=== PATIENT | male | born 1965 | race Two or more races ===

== ENCOUNTER 2024-11-06 11:38 | Emergency (ER) | payer MEDICAID, SELFPAY ==
[2024-11-06 11:39] VITALS: BMI 40.2
[2024-11-06 11:48] VITALS: BP 163/81; PULSE 73; RESP 16; TEMP 37; O2SAT 97
--- NOTE | 2024-11-06 11:56 | XR_ITS ---
Examination: CT abdomen with intravenous contrast CT pelvis with intravenous contrast 2-D coronal reconstructions 2-D sagittal reconstructions Date and time of exam:November 06, 2024 1330 hours Comparison March 31, 2021 INDICATIONS: Onset right-sided abdominal pain beginning one week ago. CTDI: vol (mGy) 12.1 DLP: (mGycm) 793 Technique: Multiple axial sections of the abdomen and pelvis have been obtained. 64 slice high-resolution scanner used. 3 mm axial sections have been obtained, post intravenous injection 60 cc [id number] 2-D sagittal, coronal reconstructions obtained. Low dose protocols were performed. One or more of the following dose reduction techniques were used; automated exposure control, adjustment of the mA and/or KV according to patient size, use of iterative reconstruction technique. Findings: No focal liver or splenic lesions Absent gallbladder No pancreatic or adrenal mass Minimal right hydronephrosis secondary to 1 mm distal right ureterovesical junction calculus, image 204 3 cm fat-containing right lateral abdominal wall hernia defect Aorta normal size No bowel obstruction Normal appendix 12 mm fat-containing umbilical hernia, small bowel is present at the entrance of this hernia defect but no bowel obstruction or incarcerated bowel Colonic diverticulosis, no diverticulitis Transverse prostate dimension 5.7 cm Contracted urinary bladder Prominent osteopenia with 5 mm posterior bony spur inferior margin L4 Moderate bilateral hip osteoarthritis IMPRESSION: 3 cm fat-containing right lateral abdominal wall hernia defect 12 mm fat-containing umbilical hernia defect Minimal right hydronephrosis secondary to 1 mm distal right ureterovesical junction calculus
--- NOTE | 2024-11-06 11:57 | PD.EDRME ---
Rapid Medical Screening Exam RME Arrival date/time: 11/06/24 11:38 This is a 59-year-old male who presents to the emergency department with complaints of right mid abdominal pain near surgical site. History of cholecystectomy. + Mild nausea no fever. I have greeted and performed a focused initial assessment of this patient. Initial appropriate labs ordered at this time. A comprehensive ED assessment and evaluation of the patient and analysis of all test and completion of medical decision making process will be conducted by additional ED provider. Chief Complaint: Abdominal Pain Time Seen by Provider: 11/06/24 11:56 Vital signs: Vital Signs Temperature 98.6 F 11/06/24 11:48 Pulse Rate 73 11/06/24 11:48 Respiratory Rate 16 11/06/24 11:48 Blood Pressure 163/81 H 11/06/24 11:48 Pulse Oximetry (%) 97 11/06/24 11:48 Oxygen Delivery Method Room Air 11/06/24 11:48
[2024-11-06 12:38] LABS: Basophils % (Auto) 1 % (0-2.5); Eosinophils # (Auto) 0.2 Thou/mm3 (0.0-0.5); Eosinophils % (Auto) 3 % (0-10); Hematocrit 49.6 % (41.0-53.0); Hemoglobin 17.1 g/dL (13.5-16.0); Immature Granulocytes % (Auto) 0 % (0-0); Immature Granulocytes Auto 0.01 Thou/mm3 (0.00-0.00); Lymphocytes # (Auto) 2.5 Thou/mm3 (1.0-4.8); Lymphocytes % (Auto) 39 % (10-50); Mean Corpuscular HGB Conc 34.5 g/dl (31.0-37.0); Mean Corpuscular Hemoglobin 29.5 pg (25.0-35.0); Mean Corpuscular Volume 86 fL (80-100); Monocytes # (Auto) 0.4 Thou/mm3 (0.0-0.8); Monocytes % (Auto) 6 % (0-12); Neutrophils # (Auto) 3.3 Thou/mm3 (1.8-7.7); Neutrophils % (Auto) 51 % (37-80); Nucleated Red Blood Cell % 0 /100 WBC (0); Platelet Count 179 Thou/mm3 (140-440); RDW Standard Deviation 41.5 fL (35.1-43.9); Red Blood Count 5.79 Miln/mm3 (4.50-5.90); White Blood Count 6.3 Thou/mm3 (3.8-10.6)
[2024-11-06 12:44] LABS: Collection Type, Urine Clean Catch
--- NOTE | 2024-11-06 12:44 | EDNOTE_ITS ---
<Statement entered by Ivonne Rios MD - 11/10/24 07:15> As co-signing physician, I was present and available for consult prn. I concur with the plan and care as documented by the midlevel provider. ED Abdominal Pain RME/HPI General Chief Complaint: Abdominal Pain Stated complaint: ABD PAIN Time seen by provider: 11/06/24 11:56 Arrival date/time: 11/06/24 11:38 RME / HPI RME / HPI narrative: 59-year-old male patient with significant history of hypertension diabetes mellitus, came in for evaluation regarding right lower quadrant pain. Onset of symptoms earlier today, sudden onset of right lower quadrant pain, described as dull ache, severity moderate. Patient also complained of nausea but denies any vomiting. Patient denies any diarrhea or constipation. Denies any fever. Denies any dysuria. Denies any other complaints. No medication was taken prior to arrival. Abdominal surgery includes open cholecystectomy in the past. Related Data Previous Rx's ?Medication ?Instructions ?Recorded ibuprofen 800 mg tablet 800 mg PO Q8H PRN pain #30 t abs 11/06/24 metformin 500 mg tablet 500 mg PO BIDWMEAL #60 tabs 11/06/24 tamsulosin 0.4 mg capsule (Flomax) 0.4 mg PO QDAY #10 caps 11/06/24 Allergies Allergy/AdvReac Type Severity Reaction Status Date / Time No Known Allergies Allergy Verified 11/06/24 11:39 Review of Systems Review of Systems Narrative Review of Systems: Review of system reviewed and within normal limits except mentioned in HPI ED Exam Narrative Physical exam: VITAL SIGNS: Reviewed. GENERAL APPEARANCE: Alert and interactive, follows commands, no acute distress, HEAD AND FACE: Non-traumatic. ENT: PERRL, pink conjunctivitis, eyelid no trauma, Mucous membrane moist. NECK: Supple, nontender, no nuchal rigidity. CHEST: No tenderness, no crepitus, no paradoxical movement, no retractions. LUNGS: Clear, well ventilated, symmetric, no rales, no wheezing, no ronchi, no stridor, good breath sounds bilaterally. HEART: Regular rate, regular rhythm, no murmur, no gallops. ABDOMEN: Soft, positive bowel sounds, nondistended, no guarding, right lower quadrant tenderness, no rebound, no masses, RECTAL: Deferred. GENITAL: Deferred. NEUROLOGICAL: Gross motor function intact sensory function intact, Appropriate for age. MUSCULOSKELETAL: low back nontender, full range of motion. EXTREMITIES: Nontender, full range of motion. SKIN: Color pink, dry, no rash, no lacerations, no abrasions, no contusions. LYMPHATICS: Deferred. Course Quality Measures none Orders Category Date Time Status CT Screening NOW Care 11/06/24 11:56 Active NPO STAT Care 11/06/24 11:[address] abdomen pelvis w con Stat Exams 11/06/24 11:56 Completed CBC Stat Lab 11/06/24 12:20 Completed Comprehensive Metabolic Panel Stat Lab 11/06/24 12:20 Completed Hemoglobin A1C [Glycohemoglobin w (eAG)] Stat Lab 11/06/24 12:20 Completed Lipase Stat Lab 11/06/24 12:20 Completed Magnesium Stat Lab 11/06/24 12:20 Completed Prothrombin Time with INR Stat Lab 11/06/24 12:20 Completed Urinalysis Stat Lab 11/06/24 12:27 Completed Morphine Inj Med 11/06/24 12:44 Discontinued 4 mg IVP X1 ONE Ondansetron Inj [Zofran Inj] Med 11/06/24 12:44 Discontinued 4 mg IV X1 ONE Sodium Chloride 0.9% 1000 ml [Ns] 1,000 ml Med 11/06/24 12:44 Discontinued IV 999 mls/hr Vital Signs Vital signs: Vital Signs Temperature 98.6 F 11/06/24 11:48 Pulse Rate 73 11/06/24 11:48 Respiratory Rate 16 11/06/24 11:48 Blood Pressure 163/81 H 11/06/24 11:48 Pulse Oximetry (%) 97 11/06/24 11:48 Oxygen Delivery Method Room Air 11/06/24 11:48 Abdominal Pain MDM MDM Narrative MDM Narrative:: 59-year-old male patient with significant history of hypertension diabetes mellitus, came in for evaluation regarding right lower quadrant pain. Onset of symptoms earlier today, sudden onset of right lower quadrant pain, described as dull ache, severity moderate. Patient also complained of nausea but denies any vomiting. Patient denies any diarrhea or constipation. Denies any fever. Denies any dysuria. Denies any other complaints. No medication was taken prior to arrival. Abdominal surgery includes open cholecystectomy in the past. Patient's workup is significant for hemoglobin A1c of 7.9. The rest of the labs unremarkable. No sign of DKA. CT scan of the abdomen and pelvis showed 1 mm stone on the right UV junction. Urinalysis positive hematuria no UTI. Results discussed with the patient. And family. Patient will be sent home on Flomax Motrin and metformin. Was advised to closely to follow-up close with PCP Patient appears nontoxic and hemodynamically stable. Patient discharged home and instructed to follow-up with primary care provider in 24 to 48 hours. Instructed to return to the emergency department immediately if worsening of symptoms Patient data External records reviewed:: None Clinical information provided by:: patient and family Social determinants that could affect healthcare access:: none Patient has the following chronic illnesses:: None How is presenting disease/condition affected by chronic disease/condition?: no chronic disease Evaluation data The following diagnostics were reviewed and interpreted by me:: lab results and radiology exam(s) Lab and/or radiology exams considered but not ordered:: None Interpretation Summary: See results in MDM Medications / Prescriptions Medications or Prescriptions considered but not ordered:: None Medication administrations:: Medication Administration History Discontinued Medications Sodium Chloride (Ns) 1,000 mls @ 999 mls/hr IV .Q1H1M ONE Stop: 11/06/24 13:44 Last Admin: 11/06/24 13:28 Dose: 999 mls/hr Documented By: SAM Morphine Sulfate (Morphine Sulf Inj 10 Mg/Ml Vial) 4 mg IVP X1 ONE Stop: 11/06/24 12:45 Last Admin: 11/06/24 13:28 Dose: 4 mg Documented By: SAM Ondansetron HCl (Ondansetron Inj 2 Mg/Ml Inj 2 Ml) 4 mg IV X1 ONE; Protocol Stop: 11/06/24 12:45 Last Admin: 11/06/24 13:27 Dose: 4 mg Documented By: SAM IV fluids, morphine and Zofran Consultations Consultation(s) initiated? (list below): No Diagnosis Differential diagnosis abdominal pain: abdominal pain and acute appendicitis Most likely diagnosis given after review of the tests above:: Ureterolithiasis, diabetes mellitus Admission Indicated Admission indicated?: not indicated Admission Request Was there a request for admission?: No Disposition Plan Disposition Plan: Discharge Discharge Attestation Discharge Attestation: The patient and all family members were given an opportunity to ask questions and understood the discharge instructions. Discharge instructions specifically effects, indications for sooner follow up or return to the emergency department, and the expected course of current diagnosis. Patient condition: Stable Discharge Plan Plan Patient Disposition: HOME (Self Care) Disposition Comment: stable Prescriptions/Referrals Prescriptions/Med Rec: New metformin 500 mg tablet 500 mg PO BIDWMEAL Qty: 60 0RF tamsulosin [Flomax] 0.4 mg capsule 0.4 mg PO QDAY Qty: 10 0RF ibuprofen 800 mg tablet 800 mg PO Q8H PRN (Reason: pain) Qty: 30 0RF Referrals: Dilan Oglesby PA-C [Primary Care Provider] - In 1 week Problem List Clinical Impression: Ureterolithiasis, Diabetes mellitus Patient/Caregiver Discharge Instructions Discharge Activity: activity as tolerated Education Materials: Diabetes Carbs Fats Protein Additional Instructions: Thank you for the opportunity for serving you today. You are stable for discharged . You are advised to: Follow-up with your PCP in 1 to 2 days Return to ED for worsening of symptoms Increase oral fluids Take medication as prescribed Print Language: [place]ian Stand Alone Forms: Louann Award Info., Patient Portal Info Letter PING/JUANI Supervising Physician PING/JUANI Supervising Physician: MD Gabriel
[2024-11-06 12:47] LABS: Bilirubin,Urine Negative (Negative); Blood,Urine 2+ (Negative); Clarity,Urine Clear (Clear/Hazy); Color,Urine Yellow (Lt Yel-Yel); Glucose, Urine 1+ (Negative); Ketones,Urine Negative (Negative); Leukocyte Esterase,Urine Negative (Negative); Nitrite,Urine Negative (Negative); PH,Urine 6.5 (5.0-7.0); Protein,Urine 1+ (Neg - Trace); RBC,Urine 148 /hpf (0-3); Specific Gravity,Urine 1.028 (1.001-1.035); Squamous Epithelial Cell,Urine < 1 /hpf (0-5); WBC,Urine 1 /hpf (0-5)
[2024-11-06 12:51] LABS: INR 1.1 (0.9-1.3); Prothrombin Time 11.7 Seconds (9.0-12.2)
[2024-11-06 13:00] LABS: Glucose Estimated Average 180 mg/dL (80-131); Hemoglobin A1C 7.9 % Hgb (4.8-6.0)
[2024-11-06 13:04] LABS: Alanine Aminotransferase 50 U/L (10-49); Albumin, Serum 4.4 gm/dL (3.4-4.8); Albumin/Globulin Ratio 1.2 (1.2-2.2); Alkaline Phosphatase 128 U/L (46-116); Anion Gap 9 (7-16); Aspartate Amino Transferase 41 U/L (0-34); BUN/Creatinine Ratio 20 Ratio (12-20); Bilirubin,Total 0.6 mg/dL (0.3-1.2); Blood Urea Nitrogen 16 mg/dL (9-23); Calcium 9.5 mg/dL (8.3-10.6); Calcium (Corrected) 9.5 mg/dL (8.5-10.1); Carbon Dioxide 27.4 mMol/L (20.0-31.0); Chloride 102 mMol/L (98-107); Creatinine (Component) 0.8 mg/dL (0.6-1.3); Estimated Creatinine Clearance 100.9 mL/min (>60); Globulin 3.6 gm/dL (2.3-3.5); Glucose 252 mg/dL (74-106); Lipase 47 U/L (12-53); Magnesium 1.8 mg/dL (1.6-2.6); Osmolality,Calculated 285 (275-295); Potassium 4.1 mMol/L (3.4-5.1); Sodium 138 mMol/L (136-145); eGFR > 60 See Note
[2024-11-06] MEDS: ONDANSETRON INJ 2 MG/ML INJ 2 ML 4 MG IV (13:27)
[2024-11-06] MEDS: MORPHINE SULF INJ 10 MG/ML VIAL 4 MG IVP (13:28)
[2024-11-06] MEDS: SODIUM CHLORIDE 0.9% 1000 ML 1,000 ML 999 ML IV (13:28)
[2024-11-06 16:10] VITALS: BP 134/80; PULSE 58; RESP 16; TEMP 36.5; O2SAT 94
== END 2024-11-06 16:17 | disposition home or self-care (01) ==
PROVIDERS: Nurse Practitioner Primary Care; Emergency Provider Emergency Medicine; PCP Physician Assistant
DX: N20.1 Calculus of ureter (principal); R31.9 Hematuria, unspecified; I10 Essential (primary) hypertension; E11.9 Type 2 diabetes mellitus without complications; Z90.49 Acquired absence of other specified parts of digestive tract
CPT/HCPCS: 36415; 74177; 80053; 81001; 83036; 83690; 83735; 85025; 85610; 96360; 96361; 99285; A4649; J2270; J2405; J7030; Q9967

== ENCOUNTER → 2025-08-03 | Outpatient (CLI) | payer MEDICAID, SELFPAY ==
--- NOTE | 2025-08-03 09:30 | XR_ITS ---
Examination: CT maxillofacial, without intravenous contrast. 2-D sagittal reconstructions. 3-D reconstructions. Date and time of exam: August 03, 2025, 2142 hours Nasal congestion and sinus pressure and pain 15 years CTDI: vol (mGy): 19.5 DLP: (mGycm): 395 Technique: Multiple axial images of maxillofacial region, 3.0 mm slice thickness. 2-D sagittal and coronal reconstructions. 3-D reconstructions. Low dose protocols were performed. One or more of the following dose reduction techniques were used; automated exposure control, adjustment of the mA and/or KV according to patient size, use of iterative reconstruction technique. Findings: Mild mucosal thickening frontal ethmoid air cells No occlusion ostiomeatal complexes Maxillary antra are clear Sphenoid air cells clear Moderate hypertrophy inferior nasal turbinates IMPRESSION: Mild chronic frontal ethmoid chronic sinusitis.
== END | disposition home or self-care (01) ==
LOC: CCTX 09:47
PROVIDERS: PCP Physician Assistant; Referring Provider Physician Assistant; Visit Provider Physician Assistant
DX: J32.8 Other chronic sinusitis (principal)
CPT/HCPCS: 70486